=== PATIENT | male | born 1960 | race Caucasian/White ===

== ENCOUNTER 2022-07-03 09:14 | Emergency (ER) | payer OTHER, SELFPAY ==
[2022-07-03 09:20] VITALS: BP 182/98; PULSE 141; RESP 16; TEMP 36.6; O2SAT 97; BMI 26.2
--- NOTE | 2022-07-03 09:26 | ED.MALEGU ---
HPI - Male Genitourinary General Chief complaint: Urogenital-Male Stated complaint: Can't Urinate since 10 pm last night Time Seen by Provider: 07/03/22 09:25 Source: patient, family and RN notes reviewed Mode of arrival: Family Vehicle Limitations: no limitations History of Present Illness HPI Narrative: This is a 62-year-old male with history of BPH on Flomax and finasteride who follows with urology. Patient presents with complaint of urinary retention. Patient states he had 1 prior episode in the past he had been on Flomax half dose prior to that, it up having a urinary catheter for about 24 hours, was removed during follow-up with urology and was placed on full-dose Flomax as well as finasteride for BPH. Patient states he has not many issues lately but starting last night had difficulty with urination and then was unable to pass any urine. Patient states he was unable to come in last night as they were on their boat out in the day and were not able to get [place] land easily. His last urination was about 9:00 p.m. last night. Patient denies fevers or chills. No chest pain or shortness of breath. No nausea or vomiting. Quite a bit of pain suprapubically. No back or flank pain. He states he has been stooling regularly with soft while firm stools. No black or bloody stools. Denies any dysuria, urgency or frequency before this. He is not had any hematuria. He is not had any discharge. Denies testicular pain. Patient denies any other daily medications besides Flomax and finasteride. States he is had labs recently as an outpatient and that he had normal renal function. Patient states he is had a vasectomy but denies any other surgeries. He follows with urology in [place] where the patient lives. They are visiting the area short term. No tobacco, occasional alcohol, no illicit. Related Data Allergies Allergy/AdvReac Type Severity Reaction Status Date / Time No Known Drug Allergies Allergy Verified 07/03/22 09:22 Review of Systems Review of Systems ROS Unobtainable: All systems reviewed & are unremarkable except as noted in HPI and below Patient History Social History Smoking Status: Never smoker Smoking Status: Never smoker alcohol intake frequency: 0-2 drinks per day Substance Use Type: does not use Exam Narrative Exam Narrative: GENERAL: Alert and oriented x three, male in moderate distress. HEENT: Head normocephalic, atraumatic, EOMI, pupils reactive, face symmetric, moist mucous membranes NECK: Supple, full range of motion CARDIOVASCULAR: Regular rate and rhythm without murmurs, rubs or gallops. RESPIRATORY: Breath sounds equal bilaterally, no wheezes rales or rhonchi. ABDOMEN: Soft, tender, patient is quite distended and full suprapubically. Normoactive bowel sounds all 4 quadrants. No guarding or rebound, rigidity, no mass : No CVA tenderness. Male: normal external examination, no penile discharge or lesions, testicles non-tender, cremasteric reflex intact, no inguinal hernias noted. Nursing place urinary catheter while I was in the room, patient had immediate drainage of translucent yellow urine with significant relief. EXTREMITIES: Normal range of motion, no clubbing or edema. Neurovascularly intact NEUROLOGICAL: Cranial nerves II through XII grossly intact. Moving all extremities SKIN: Warm, dry, no petechiae, no rashes or lesions. Initial Vital Signs Initial Vital Signs: Vital Signs Temperature 97.8 F 07/03/22 09:20 Pulse Rate 141 H 07/03/22 09:20 Respiratory Rate 16 07/03/22 09:20 Blood Pressure 182/98 H 07/03/22 09:20 Pulse Oximetry 97 07/03/22 09:20 Oxygen Delivery Method Room Air 07/03/22 09:20 Course Orders Ordered: Discontinued Medications Lidocaine HCl (Lidocaine 2% (Glydo) 6 Ml Gel) 6 ml TOP NOW ONE Stop: 07/03/22 09:23 Last Admin: 07/03/22 09:42 Dose: 6 ml Documented By: [facility] Vital Signs Vital signs: Vital Signs - 8 hr 07/03/22 09:20 Temperature 97.8 F Pulse Rate 141 H Respiratory Rate 16 Blood Pressure 182/98 H Pulse Oximetry 97 Oxygen Delivery Method Room Air MDM - Male Genitourinary Lab Data Labs: Lab Results 07/03/22 Range/Units 09:38 Urine Color Yellow Urine Appearance Clear Urine pH 5.5 (4.5-8.0) Ur Specific [place] 1.020 (1.000-1.035) Urine Protein Trace H (Negative) Urine Glucose (UA) Trace H (Negative) g/dL Urine Ketones Negative (NEGATIVE) Urine Occult Blood Trace-intact (Negative) Urine Nitrate Negative (Negative) Urine Bilirubin Negative (NEGATIVE) Urine Urobilinogen 0.2 (0.2) E.U./dL Ur Leukocyte Esterase Negative (NEGATIVE) Urine RBC None seen (0-5/HPF) Urine WBC None seen (0-5/HPF) Urine Bacteria None seen (None) Ur Culture Indicated? Cult not indicated Micro UA Comment Microscopic normal MDM Narrative Medical decision making narrative: This is a 62-year-old male with complaint of urinary retention, patient had catheter placed significant improvement of symptoms. Patient has history of BPH is on Flomax and finasteride and follows with a urologist, has had 1 prior episode similar to this. Notes he is had recent labs which he states were normal including his renal function. Patient was quite tachycardic and hypertensive improved after drainage of bladder. Urine was sent and shows Discharge Plan Departure Patient Disposition: Home Clinical Impression: Acute urinary retention Instructions: How to Care for Your Moy Catheter -- Male Activity Restrictions/Additional Instructions: Please follow-up with your urologist, call to set up an appointment. I would leave the catheter in for several days to allow your bladder to return to its normal size it was quite distended today. Continue your Flomax and finasteride as prescribed. Please return for fevers, new or worsening abdominal back or flank pain, nausea or vomiting, difficulty with urination signs of blockage of your urinary catheter or no drainage from the catheter or other new or concerning changes. Referrals: Naseem Lomeli [Other] Stand Alone Forms: Patient Portal/API
--- NOTE | 2022-07-03 09:40 | PC.NURSE ---
patient reports last urination last night around 9pm, small dribbles since. Reports severe pain and distention. Patient has had similar episode in April.
[2022-07-03] MEDS: LIDOCAINE 2% (GLYDO) 6 ML GEL TOP (09:42)
[2022-07-03 09:43] LABS: Appearance Urine UA CLEAR; Bilirubin Urine UA NEGATIVE (NEGATIVE); Color Urine UA YELLOW; Glucose Urine UA TRACE g/dL (Negative); Ketones Urine UA NEGATIVE (NEGATIVE); Leukocyte Esterase Urine UA NEGATIVE (NEGATIVE); Nitrite Urine UA NEGATIVE (Negative); Occult Blood Urine UA TRACE-INTACT (Negative); Protein Urine UA TRACE (Negative); Urobilinogen Urine UA 0.2 E.U./dL (0.2); pH Urine UA 5.5 (4.5-8.0)
[2022-07-03 09:48] VITALS: BP 148/88
[2022-07-03 09:48] LABS: Bacteria Urine None Seen; Culture Indicated Urine Cult Not Indicated; RBC Urine None Seen (0-5/HPF); Urine Comments Microscopic Normal; WBC Urine None Seen (0-5/HPF)
[2022-07-03 10:14] VITALS: O2SAT 94
[2022-07-03 10:19] VITALS: PULSE 108
== END 2022-07-03 10:34 | disposition home or self-care (01) ==
PROVIDERS: Emergency Provider Emergency Medicine
DX: R33.8 Other retention of urine (principal)
CPT/HCPCS: 51798; 81001; 99283